=== PATIENT | male | born 1985 | race Caucasian/White ===

== ENCOUNTER 2017-01-20 08:25 | Inpatient (IN) | payer MEDICAID, MEDICARE ==
[~2017-01-20] VITALS: Ht 180.3 cm; Wt 99.2 kg
[~2017-01-20 08:25] MED LIST: ASEN10TA8 SL; QUET200T PO
[2017-01-20] MEDS ORDERED: FLUPH2.5I IM (08:37)
[2017-01-20] MEDS ORDERED: DIPH25 PO (08:37)
[2017-01-20] MEDS ORDERED: ZOLPIDEM TARTRATE 10 MG TABLET PO PRN (09:15)
[2017-01-20] MEDS ORDERED: QUEtiapine FUMARATE 100 MG TABLET PO PRN (09:15)
[2017-01-20] MEDS ORDERED: LORazepam 2 MG TABLET PO PRN (09:15)
[2017-01-20 09:42] LABS: BASOPHILS # (AUTO) 0.02 K/uL (0.00-0.20); BASOPHILS % (AUTO) 0.4 % (0.0-2.0); EOSINOPHILS % (AUTO) 1.68 % (1.0-6.0); HEMOGLOBIN 14.1 g/dL (13.5-17.5); LYMPHOCYTES % (AUTO) 17.1 % (22.0-44.0); MEAN CORPUSCULAR HGB CONC 33.5 G/dL (31.0-37.0); MEAN CORPUSCULAR VOLUME 90 fL (80-100); MONOCYTES # (AUTO) 0.3 K/uL (0.1-1.0); MONOCYTES % (AUTO) 4.6 % (2.0-9.0); NEUTROPHILS # (AUTO) 4.6 K/uL (1.8-7.7); NEUTROPHILS % (AUTO) 76.3 % (40.0-70.0); PLATELET COUNT (AUTO) 235 K/uL (150-450); RED BLOOD CELL COUNT(AUTO) 4.69 MIL/uL (4.50-5.90); RED CELL DISTRIBUTION WIDTH 12.5 % (11.5-14.5)
[2017-01-20 09:53] LABS: ANION GAP 7 mmol/L (8-16); CALCIUM, TOTAL 8.9 mg/dL (8.8-10.5); CARBON DIOXIDE 29 mmol/L (22-29); CHLORIDE 104 mmol/L (98-107); CREATININE 0.71 mg/dL (0.60-1.30); GLOMERULAR FILTR. RATE CALC > 60 mL/min (>60); POTASSIUM 4.3 mmol/L (3.5-5.1); SODIUM SERUM 140 mmol/L (136-145); UREA NITROGEN, BLOOD 10 mg/dL (7-18)
[2017-01-20 09:59] LABS: ALANINE AMINOTRANSFERASE 29 U/L (12-78); ALBUMIN 3.9 g/dL (3.4-5.0); ASPARTATE AMINOTRANSFERASE 26 U/L (15-37); BILIRUBIN,TOTAL 0.6 mg/dL (0.1-1.0); TOTAL PROTEIN, SERUM 7.6 g/dL (6.4-8.2)
[2017-01-20] MEDS ORDERED: PALIPERIDONE 3 MG ER TABLET PO PRN (10:00)
[2017-01-20] MEDS ORDERED: MAGNESIUM HYDROXIDE SUSPENSION 30 ML UDCUP PO PRN ×2 (10:00→17:30)
[2017-01-20] MEDS ORDERED: PROMETHAZINE HCL 25 MG TABLET PO PRN (10:00)
[2017-01-20] MEDS ORDERED: TUBERCULIN, PURIFIED PROTEIN DERIVATIVE 5 TU/0.1 ML SYG ID ONE (10:00)
[2017-01-20] MEDS ORDERED: LOPERAMIDE HCL 2 MG CAPSULE PO PRN ×2 (10:00→17:30)
[2017-01-20] MEDS ORDERED: MAG HYDROX/AL HYDROX/SIMETH ES 30 ML SUSPENSION UDCUP PO PRN ×2 (10:00→17:30)
[2017-01-20] MEDS ORDERED: PALIPERIDONE PALMITATE 234 MG/1.5 ML SYRINGE IM ONE (10:00)
[2017-01-20] MEDS ORDERED: ACETAMINOPHEN 325 MG TABLET PO PRN (10:00)
[2017-01-20] MEDS ORDERED: HydrOXYzine PAMOATE 50 MG CAPSULE PO PRN (10:00)
[2017-01-20] MEDS ORDERED: GuaiFENesin/D-METHORPHAN [SUGAR-FREE] 200-20MG/10 ML SYRUP UDCUP PO PRN (10:00)
[2017-01-20] MEDS ORDERED: HALOPERIDOL LACTATE 5 MG/ML VIAL IM ONE (14:00)
[2017-01-20] MEDS ORDERED: LORazepam 2 MG/ML VIAL IM ONE (14:00)
[2017-01-20] MEDS ORDERED: DiphenhydrAMINE HCL 50 MG/ML VIAL IM ONE (14:00)
[2017-01-20] MEDS: THIAMINE HCL 100 MG TABLET PO SCH (16:20)
[2017-01-20 16:36] VITALS: BP 123/73
[2017-01-20] MEDS ORDERED: ONDANSETRON HCL 4 MG TABLET PO PRN (17:30)
[2017-01-20] MEDS ORDERED: IBUPROFEN 600 MG TABLET PO PRN (17:30)
[2017-01-20] MEDS ORDERED: BACITRACIN 28.4 GM OINTMENT TP PRN (17:30)
[2017-01-20] MEDS ORDERED: CloNIDine HCL 0.1 MG TABLET PO PRN (17:30)
[2017-01-20] MEDS ORDERED: ALBUTEROL SULFATE HFA 90 MCG/PUFF 8 GM INHALER IH PRN (17:30)
[2017-01-20] MEDS ORDERED: PETROLATUM,WHITE 71 GM JELLY TP PRN (17:30)
[2017-01-20] MEDS ORDERED: BENZOCAINE/MENTHOL LOZENGE MM PRN (17:30)
[2017-01-20] MEDS ORDERED: QUEtiapine FUMARATE 100 MG TABLET PO SCH (21:00)
[2017-01-20] MEDS: PALIPERIDONE 3 MG ER TABLET PO SCH (21:04)
[2017-01-21] MEDS ORDERED: PNEUMOCOCCAL VACCINE POLYVALENT 0.5 ML VIAL [PPSV23] IM ONE (04:30)
[2017-01-21] MEDS ORDERED: INFLUENZA VIRUS VACCINE QVS 2017-18 (3YR+)/PF 60 MCG/0.5 ML SYRINGE IM ONE (04:30)
[2017-01-21 08:15] VITALS: BP 118/62
[2017-01-21] MEDS: NALTREXONE HCL 50 MG TABLET PO SCH (09:25)
[2017-01-21] MEDS: OMEPRAZOLE 20 MG CAPSULE PO SCH (09:25)
[2017-01-21] MEDS: DOCUSATE SODIUM 100 MG CAPSULE PO SCH (09:26)
[2017-01-21] MEDS: FOLIC ACID 1 MG TABLET PO SCH (09:26)
[2017-01-21] MEDS: MULTIVITAMINS WITH MINERALS, THERAPEUTIC TABLET PO SCH (09:26)
[2017-01-21] MEDS: THIAMINE HCL 100 MG TABLET PO SCH ×2 (09:26→16:18)
[2017-01-21] MEDS ORDERED: PALI234D IM (15:44)
[2017-01-21] MEDS ORDERED: NALT50TA PO (15:44)
[2017-01-21 16:00] VITALS: BP 132/84
[2017-01-21] MEDS: PALIPERIDONE 3 MG ER TABLET PO SCH (20:32)
[2017-01-22 08:13] VITALS: BP 134/77
[2017-01-22] MEDS ORDERED: PALI234D IM (09:07)
[2017-01-22] MEDS ORDERED: DSS100 PO (09:07)
[2017-01-22] MEDS ORDERED: NALT50TA6 PO (09:07)
[2017-01-22] MEDS ORDERED: OMEP20 PO (09:07)
[2017-01-22] MEDS: NALTREXONE HCL 50 MG TABLET PO SCH (09:39)
[2017-01-22] MEDS: DOCUSATE SODIUM 100 MG CAPSULE PO SCH (09:39)
[2017-01-22] MEDS: FOLIC ACID 1 MG TABLET PO SCH (09:39)
[2017-01-22] MEDS: THIAMINE HCL 100 MG TABLET PO SCH (09:39)
[2017-01-22] MEDS: MULTIVITAMINS WITH MINERALS, THERAPEUTIC TABLET PO SCH (09:39)
[2017-01-22] MEDS: OMEPRAZOLE 20 MG CAPSULE PO SCH (09:39)
[2017-01-24] MEDS ORDERED: PALIPERIDONE PALMITATE 156 MG/ML SYRINGE IM ONE (09:00)
== END 2017-01-22 11:40 | disposition home or self-care (01) | DRG 885 ==
LOC: EEVIPCON 08:28 → EMS 08:28 → B3A 13:29
PROVIDERS: ADMIT Psychiatry & Neurology Psychiatry; ATTEND Psychiatry & Neurology Psychiatry
DX: F20.0 Paranoid schizophrenia (principal); R45.851 Suicidal ideations; Z59.0 Homelessness; F32.9 Major depressive disorder, single episode, unspecified; K59.00 Constipation, unspecified; F15.10 Other stimulant abuse, uncomplicated; F12.90 Cannabis use, unspecified, uncomplicated; F17.210 Nicotine dependence, cigarettes, uncomplicated; Z91.19 Patient's noncompliance with other medical treatment and regimen; Z79.899 Other long term (current) drug therapy; Z71.6 Tobacco abuse counseling; Z87.81 Personal history of (healed) traumatic fracture
CPT/HCPCS: 96372; 99285; G0480

== ENCOUNTER 2017-11-01 22:31 | Emergency (ER) | payer MEDICARE ==
[~2017-11-01] VITALS: Ht 185.4 cm; Wt 95.5 kg
[~2017-11-01 22:31] MED LIST changes: -ASEN10TA8 SL; +DSS100 PO; +NALT50TA PO; +NALT50TA6 PO; +OMEP20 PO; +PALI234D IM; -QUET200T PO
[2017-11-01] MEDS ORDERED: QUET25TA PO (23:55)
[2017-11-01] MEDS ORDERED: BUSP5TAB20 PO (23:55)
[2017-11-01] MEDS ORDERED: RISP2 PO (23:55)
[2017-11-01] MEDS ORDERED: DIPH25 PO (23:55)
[2017-11-01] MEDS ORDERED: LORA2TAB2 PO (23:55)
[2017-11-02] LABS: AMPHET/METH SCREEN,URINE NEGATIVE (NEGATIVE); BARBITURATE SCREEN, URINE NEGATIVE (NEGATIVE); BENZODIAZEPINES SCREEN,URINE NEGATIVE (NEGATIVE); CANNABINOID SCREEN,URINE POSITIVE (NEGATIVE); COCAINE SCREEN,URINE NEGATIVE (NEGATIVE); METHADONE SCREEN, URINE NEGATIVE (NEGATIVE); OPIATE SCREEN,URINE NEGATIVE (NEGATIVE)
[2017-11-02 00:01] LABS: PHENCYCLIDINE SCREEN,URINE NEGATIVE (NEGATIVE)
[2017-11-02 00:31] LABS: BASOPHILS % (AUTO) 0.6 % (0.0-2.0); EOSINOPHILS % (AUTO) 1.7 % (1.0-6.0); HEMATOCRIT 35.7 % (41-53); LYMPHOCYTES # (AUTO) 1.7 K/uL (1.0-4.8); LYMPHOCYTES % (AUTO) 19.7 % (22.0-44.0); MEAN CORPUSCULAR HEMOGLOBIN 29.6 pg (26.0-34.0); MEAN CORPUSCULAR HGB CONC 33.6 G/dL (31.0-37.0); MEAN CORPUSCULAR VOLUME 88 fL (80-100); MONOCYTES # (AUTO) 0.4 K/uL (0.1-1.0); MONOCYTES % (AUTO) 4.5 % (2.0-9.0); NEUTROPHILS # (AUTO) 6.3 K/uL (1.8-7.7); NEUTROPHILS % (AUTO) 73.5 % (40.0-70.0); PLATELET COUNT (AUTO) 299 K/uL (150-450); RED BLOOD CELL COUNT(AUTO) 4.05 MIL/uL (4.50-5.90); RED CELL DISTRIBUTION WIDTH 13.5 % (11.5-14.5)
[2017-11-02 00:43] LABS: ANION GAP 7 mmol/L (8-16); CALCIUM, TOTAL 8.6 mg/dL (8.8-10.5); CARBON DIOXIDE 26 mmol/L (22-29); CHLORIDE 105 mmol/L (98-107); CREATININE 1.05 mg/dL (0.60-1.30); GLOMERULAR FILTR. RATE CALC > 60 mL/min (>60); GLUCOSE,RANDOM 106 mg/dL (70-110); POTASSIUM 3.5 mmol/L (3.5-5.1); SODIUM SERUM 138 mmol/L (136-145); UREA NITROGEN, BLOOD 21 mg/dL (7-18)
[2017-11-02 00:49] LABS: ALANINE AMINOTRANSFERASE 35 U/L (12-78); ALBUMIN 3.2 g/dL (3.4-5.0); ALKALINE PHOSPHATASE 65 U/L (46-116); ASPARTATE AMINOTRANSFERASE 23 U/L (15-37); BILIRUBIN,TOTAL 0.4 mg/dL (0.1-1.0); TOTAL PROTEIN, SERUM 6.6 g/dL (6.4-8.2)
[2017-11-02 01:13] VITALS: BP 136/80
== END 2017-11-02 01:36 | disposition home or self-care (01) ==
LOC: EMS 22:32
DX: F20.0 Paranoid schizophrenia (principal); F17.210 Nicotine dependence, cigarettes, uncomplicated; F12.90 Cannabis use, unspecified, uncomplicated; F19.90 Other psychoactive substance use, unspecified, uncomplicated; Z59.0 Homelessness; Z88.8 Allergy status to other drugs, medicaments and biological substances
CPT/HCPCS: 36415; 80053; 80307; 85025; 99285; G0480

== ENCOUNTER 2017-11-20 17:09 | Emergency (ER) | payer MEDICARE ==
[~2017-11-20] VITALS: Ht 180.3 cm; Wt 86.4 kg
[~2017-11-20 17:09] MED LIST changes: +BUSP5TAB20 PO; +DIPH25 PO; -DSS100 PO; +LORA2TAB2 PO; -NALT50TA PO; -NALT50TA6 PO; -OMEP20 PO; -PALI234D IM; +QUET25TA PO; +RISP2 PO
[2017-11-20 17:56] LABS: BASOPHILS % (AUTO) 0.6 % (0.0-2.0); EOSINOPHILS % (AUTO) 0.9 % (1.0-6.0); HEMATOCRIT 38.4 % (41-53); LYMPHOCYTES # (AUTO) 1.7 K/uL (1.0-4.8); MEAN CORPUSCULAR HGB CONC 33.8 G/dL (31.0-37.0); MEAN CORPUSCULAR VOLUME 89 fL (80-100); MONOCYTES # (AUTO) 0.5 K/uL (0.1-1.0); NEUTROPHILS # (AUTO) 7.1 K/uL (1.8-7.7); NEUTROPHILS % (AUTO) 75.5 % (40.0-70.0); PLATELET COUNT (AUTO) 238 K/uL (150-450); RED BLOOD CELL COUNT(AUTO) 4.33 MIL/uL (4.50-5.90)
[2017-11-20 18:07] LABS: ANION GAP 8 mmol/L (8-16); CALCIUM, TOTAL 9.6 mg/dL (8.8-10.5); CARBON DIOXIDE 29 mmol/L (22-29); CHLORIDE 102 mmol/L (98-107); GLOMERULAR FILTR. RATE CALC > 60 mL/min (>60); GLUCOSE,RANDOM 100 mg/dL (70-110); POTASSIUM 3.7 mmol/L (3.5-5.1); SODIUM SERUM 139 mmol/L (136-145); UREA NITROGEN, BLOOD 19 mg/dL (7-18)
[2017-11-20 18:12] LABS: ALANINE AMINOTRANSFERASE 58 U/L (12-78); ALKALINE PHOSPHATASE 71 U/L (46-116); ASPARTATE AMINOTRANSFERASE 37 U/L (15-37); BILIRUBIN,TOTAL 1.1 mg/dL (0.1-1.0); TOTAL PROTEIN, SERUM 7.4 g/dL (6.4-8.2)
[2017-11-20 18:29] LABS: AMPHET/METH SCREEN,URINE NEGATIVE (NEGATIVE); BARBITURATE SCREEN, URINE NEGATIVE (NEGATIVE); BENZODIAZEPINES SCREEN,URINE NEGATIVE (NEGATIVE); CANNABINOID SCREEN,URINE POSITIVE (NEGATIVE); COCAINE SCREEN,URINE NEGATIVE (NEGATIVE); METHADONE SCREEN, URINE NEGATIVE (NEGATIVE); OPIATE SCREEN,URINE NEGATIVE (NEGATIVE)
[2017-11-20 18:30] LABS: PHENCYCLIDINE SCREEN,URINE NEGATIVE (NEGATIVE)
[2017-11-20 20:12] VITALS: BP 120/71
== END 2017-11-20 20:54 | disposition home or self-care (01) ==
LOC: EMS 17:10
DX: F12.90 Cannabis use, unspecified, uncomplicated (principal); R45.851 Suicidal ideations; F20.9 Schizophrenia, unspecified; F17.210 Nicotine dependence, cigarettes, uncomplicated; Z59.0 Homelessness; Z88.8 Allergy status to other drugs, medicaments and biological substances
CPT/HCPCS: 36415; 80053; 80307; 85025; 99285; G0480

== ENCOUNTER 2017-12-08 04:02 | Inpatient (IN) | payer MEDICARE, MEDICAID ==
[~2017-12-08] VITALS: Ht 180.3 cm; Wt 89.3 kg
[2017-12-08 04:33] LABS: BASOPHILS % (AUTO) 0.9 % (0.0-2.0); EOSINOPHILS % (AUTO) 0.4 % (1.0-6.0); HEMATOCRIT 38.8 % (41-53); HEMOGLOBIN 13.1 g/dL (13.5-17.5); LYMPHOCYTES # (AUTO) 1.4 K/uL (1.0-4.8); LYMPHOCYTES % (AUTO) 12.8 % (22.0-44.0); MEAN CORPUSCULAR HEMOGLOBIN 29.8 pg (26.0-34.0); MEAN CORPUSCULAR HGB CONC 33.8 G/dL (31.0-37.0); MEAN CORPUSCULAR VOLUME 88 fL (80-100); MONOCYTES # (AUTO) 0.8 K/uL (0.1-1.0); MONOCYTES % (AUTO) 6.9 % (2.0-9.0); PLATELET COUNT (AUTO) 298 K/uL (150-450); RED BLOOD CELL COUNT(AUTO) 4.41 MIL/uL (4.50-5.90)
[2017-12-08 04:42] LABS: ANION GAP 6 mmol/L (8-16); CALCIUM, TOTAL 9.5 mg/dL (8.8-10.5); CARBON DIOXIDE 31 mmol/L (22-29); CHLORIDE 102 mmol/L (98-107); CREATININE 0.82 mg/dL (0.60-1.30); GLOMERULAR FILTR. RATE CALC > 60 mL/min (>60); GLUCOSE,RANDOM 101 mg/dL (70-110); POTASSIUM 4.1 mmol/L (3.5-5.1); SODIUM SERUM 139 mmol/L (136-145); UREA NITROGEN, BLOOD 19 mg/dL (7-18)
[2017-12-08 04:48] LABS: ALANINE AMINOTRANSFERASE 63 U/L (12-78); ALBUMIN 3.9 g/dL (3.4-5.0); ALKALINE PHOSPHATASE 61 U/L (46-116); ASPARTATE AMINOTRANSFERASE 50 U/L (15-37); BILIRUBIN,TOTAL 0.5 mg/dL (0.1-1.0); TOTAL PROTEIN, SERUM 7.5 g/dL (6.4-8.2)
[2017-12-08] MEDS ORDERED: ZOLPIDEM TARTRATE 10 MG TABLET PO PRN (06:00)
[2017-12-08 06:29] LABS: AMPHET/METH SCREEN,URINE NEGATIVE (NEGATIVE); BARBITURATE SCREEN, URINE NEGATIVE (NEGATIVE); BENZODIAZEPINES SCREEN,URINE NEGATIVE (NEGATIVE); CANNABINOID SCREEN,URINE POSITIVE (NEGATIVE); COCAINE SCREEN,URINE NEGATIVE (NEGATIVE); METHADONE SCREEN, URINE NEGATIVE (NEGATIVE); OPIATE SCREEN,URINE NEGATIVE (NEGATIVE)
[2017-12-08 06:32] LABS: PHENCYCLIDINE SCREEN,URINE NEGATIVE (NEGATIVE)
[2017-12-09 00:41] VITALS: BP 130/75
[2017-12-09] MEDS ORDERED: PNEUMOCOCCAL VACCINE POLYVALENT 0.5 ML VIAL [PPSV23] IM ONE (03:45)
[2017-12-09] MEDS ORDERED: GuaiFENesin/D-METHORPHAN [SUGAR-FREE] 200-20MG/10 ML SYRUP UDCUP PO PRN (06:45)
[2017-12-09] MEDS ORDERED: NICOTINE 14 MG/24 HOUR PATCH TD PRN (06:45)
[2017-12-09] MEDS ORDERED: CloNIDine HCL 0.1 MG TABLET PO PRN (06:45)
[2017-12-09] MEDS ORDERED: LOPERAMIDE HCL 2 MG CAPSULE PO PRN (06:45)
[2017-12-09] MEDS ORDERED: MAGNESIUM HYDROXIDE SUSPENSION 30 ML UDCUP PO PRN (06:45)
[2017-12-09] MEDS ORDERED: MAG HYDROX/AL HYDROX/SIMETH ES 30 ML SUSPENSION UDCUP PO PRN (06:45)
[2017-12-09] MEDS ORDERED: IBUPROFEN 400 MG TABLET PO PRN (06:45)
[2017-12-09] MEDS ORDERED: ACETAMINOPHEN 325 MG TABLET PO PRN (06:45)
[2017-12-09] MEDS ORDERED: PETROLATUM,WHITE 71 GM JELLY TP PRN (06:45)
[2017-12-09] MEDS ORDERED: ONDANSETRON HCL 4 MG TABLET PO PRN (06:45)
[2017-12-09] MEDS ORDERED: ALBUTEROL SULFATE HFA 90 MCG/PUFF 8 GM INHALER IH PRN (06:45)
[2017-12-09] MEDS ORDERED: DOCUSATE SODIUM 100 MG CAPSULE PO PRN (06:45)
[2017-12-09 08:01] VITALS: BP 116/60
[2017-12-09 08:52] LABS: CHOL/HDL RATIO 2.6 (4.2-7.3)
[2017-12-09] MEDS: FERROUS SULFATE 325 MG EC TABLET PO SCH ×2 (12:20→16:02)
[2017-12-09 16:01] VITALS: BP 130/81
[2017-12-09] MEDS: LORazepam 2 MG TABLET PO PRN (20:22)
[2017-12-09] MEDS: QUEtiapine FUMARATE 100 MG TABLET PO PRN (20:22)
[2017-12-10] MEDS: FERROUS SULFATE 325 MG EC TABLET PO SCH ×3 (06:59→16:39)
[2017-12-10 07:08] VITALS: BP 137/80
[2017-12-10 08:01] VITALS: BP 118/70
[2017-12-10] MEDS: LORazepam 2 MG TABLET PO PRN ×2 (12:29→16:39)
[2017-12-10] MEDS: QUEtiapine FUMARATE 100 MG TABLET PO PRN ×2 (12:29→16:39)
[2017-12-10 16:00] VITALS: BP 136/76
[2017-12-10] MEDS ORDERED: FERR-89 PO (19:21)
== END 2017-12-10 19:35 | disposition home or self-care (01) | DRG 885 ==
LOC: EMS 04:04 → B3A 21:30
PROVIDERS: ATTEND Psychiatry & Neurology Psychiatry
PROC: 3E0234Z Introduction of Serum, Toxoid and Vaccine into Muscle, Percutaneous Approach (ICD-10-PCS; principal; 2017-12-09)
DX: F25.1 Schizoaffective disorder, depressive type (principal); R45.851 Suicidal ideations; D64.9 Anemia, unspecified; D72.829 Elevated white blood cell count, unspecified; Z91.14 Patient's other noncompliance with medication regimen; F41.9 Anxiety disorder, unspecified; R74.0 Nonspecific elevation of levels of transaminase and lactic acid dehydrogenase [LDH]; F19.10 Other psychoactive substance abuse, uncomplicated; Z59.0 Homelessness; Z88.8 Allergy status to other drugs, medicaments and biological substances; Z71.51 Drug abuse counseling and surveillance of drug abuser; Z23 Encounter for immunization
CPT/HCPCS: 90471; 99285; G0480

== ENCOUNTER 2018-02-27 13:33 | Inpatient (IN) | payer MEDICARE, MEDICAID ==
[~2018-02-27] VITALS: Ht 180.3 cm; Wt 100.2 kg
[~2018-02-27 13:33] MED LIST changes: -BUSP5TAB20 PO; -DIPH25 PO; +FERR-89 PO; -LORA2TAB2 PO; -QUET25TA PO; -RISP2 PO
[2018-02-27] MEDS ORDERED: DIPH25 PO (14:45)
[2018-02-27] MEDS ORDERED: QUET25TA PO (14:45)
[2018-02-27] MEDS ORDERED: LORA0.5T2 PO (14:45)
[2018-02-27] MEDS ORDERED: ZOLP10TA7 PO (14:46)
[2018-02-27 14:52] LABS: AMPHET/METH SCREEN,URINE NEGATIVE (NEGATIVE); BARBITURATE SCREEN, URINE NEGATIVE (NEGATIVE); BENZODIAZEPINES SCREEN,URINE NEGATIVE (NEGATIVE); CANNABINOID SCREEN,URINE NEGATIVE (NEGATIVE); COCAINE SCREEN,URINE NEGATIVE (NEGATIVE); METHADONE SCREEN, URINE NEGATIVE (NEGATIVE); OPIATE SCREEN,URINE NEGATIVE (NEGATIVE)
[2018-02-27 15:02] LABS: PHENCYCLIDINE SCREEN,URINE NEGATIVE (NEGATIVE)
[2018-02-27 15:06] LABS: BASOPHILS % (AUTO) 0.5 % (0.0-2.0); EOSINOPHILS % (AUTO) 1.4 % (1.0-6.0); HEMATOCRIT 38.7 % (41-53); HEMOGLOBIN 13.1 g/dL (13.5-17.5); LYMPHOCYTES # (AUTO) 2.4 K/uL (1.0-4.8); MEAN CORPUSCULAR HEMOGLOBIN 29.7 pg (26.0-34.0); MEAN CORPUSCULAR HGB CONC 33.8 G/dL (31.0-37.0); MEAN CORPUSCULAR VOLUME 88 fL (80-100); MONOCYTES # (AUTO) 0.5 K/uL (0.1-1.0); MONOCYTES % (AUTO) 6.2 % (2.0-9.0); NEUTROPHILS % (AUTO) 61.9 % (40.0-70.0); PLATELET COUNT (AUTO) 244 K/uL (150-450); RED CELL DISTRIBUTION WIDTH 13.5 % (11.5-14.5)
[2018-02-27 15:09] LABS: ANION GAP 9 mmol/L (8-16); CALCIUM, TOTAL 8.9 mg/dL (8.8-10.5); CARBON DIOXIDE 28 mmol/L (22-29); CHLORIDE 106 mmol/L (98-107); CREATININE 0.74 mg/dL (0.60-1.30); GLOMERULAR FILTR. RATE CALC > 60 mL/min (>60); GLUCOSE,RANDOM 96 mg/dL (70-110); POTASSIUM 3.5 mmol/L (3.5-5.1); SODIUM SERUM 143 mmol/L (136-145); UREA NITROGEN, BLOOD 13 mg/dL (7-18)
[2018-02-27 15:15] LABS: ALANINE AMINOTRANSFERASE 27 U/L (12-78); ALBUMIN 3.7 g/dL (3.4-5.0); ALKALINE PHOSPHATASE 72 U/L (46-116); ASPARTATE AMINOTRANSFERASE 29 U/L (15-37); BILIRUBIN,TOTAL 0.7 mg/dL (0.1-1.0); TOTAL PROTEIN, SERUM 6.7 g/dL (6.4-8.2)
[2018-02-27] MEDS ORDERED: FluPHENAZine HCL 2.5 MG/ML INJ IM ONE (15:45)
[2018-02-27] MEDS ORDERED: LORazepam 2 MG/ML VIAL IM ONE (15:45)
[2018-02-27] MEDS ORDERED: DiphenhydrAMINE HCL 50 MG/ML VIAL IM ONE (15:45)
[2018-02-27 18:15] VITALS: BP 122/76
[2018-02-27] MEDS ORDERED: IBUPROFEN 400 MG TABLET PO PRN (18:45)
[2018-02-27] MEDS ORDERED: MAG HYDROX/AL HYDROX/SIMETH ES 30 ML SUSPENSION UDCUP PO PRN (18:45)
[2018-02-27] MEDS ORDERED: ONDANSETRON HCL 4 MG TABLET PO PRN (18:45)
[2018-02-27] MEDS ORDERED: PETROLATUM,WHITE 71 GM JELLY TP PRN (18:45)
[2018-02-27] MEDS ORDERED: CloNIDine HCL 0.1 MG TABLET PO PRN (18:45)
[2018-02-27] MEDS ORDERED: NICOTINE 14 MG/24 HOUR PATCH TD PRN (18:45)
[2018-02-27] MEDS ORDERED: DOCUSATE SODIUM 100 MG CAPSULE PO PRN (18:45)
[2018-02-27] MEDS ORDERED: ACETAMINOPHEN 325 MG TABLET PO PRN (18:45)
[2018-02-27] MEDS ORDERED: LOPERAMIDE HCL 2 MG CAPSULE PO PRN (18:45)
[2018-02-27] MEDS ORDERED: GuaiFENesin/D-METHORPHAN [SUGAR-FREE] 200-20MG/10 ML SYRUP UDCUP PO PRN (18:45)
[2018-02-27] MEDS ORDERED: ALBUTEROL SULFATE HFA 90 MCG/PUFF 8 GM INHALER IH PRN (18:45)
[2018-02-27] MEDS ORDERED: MAGNESIUM HYDROXIDE SUSPENSION 30 ML UDCUP PO PRN (18:45)
[2018-02-28 04:13] VITALS: BP 125/78
[2018-02-28 08:12] VITALS: BP 124/72
[2018-02-28] MEDS: QUEtiapine FUMARATE 100 MG TABLET PO PRN (09:30)
[2018-02-28] MEDS: LORazepam 2 MG TABLET PO PRN (09:30)
[2018-02-28] MEDS: QUEtiapine FUMARATE 25 MG TABLET PO SCH (17:01)
[2018-02-28 17:02] VITALS: BP 124/74
[2018-02-28] MEDS: QUEtiapine FUMARATE 200 MG TABLET PO SCH (20:04)
[2018-03-01 05:30] VITALS: BP 118/70
[2018-03-01 08:12] VITALS: BP 128/70
[2018-03-01] MEDS: LORazepam 2 MG TABLET PO PRN ×2 (08:51→16:21)
[2018-03-01] MEDS: QUEtiapine FUMARATE 25 MG TABLET PO SCH ×2 (08:51→16:21)
[2018-03-01 16:00] VITALS: BP 128/81
[2018-03-01] MEDS: QUEtiapine FUMARATE 200 MG TABLET PO SCH (20:21)
[2018-03-02 05:36] VITALS: BP 122/78
[2018-03-02 08:21] VITALS: BP 116/65
[2018-03-02] MEDS: QUEtiapine FUMARATE 25 MG TABLET PO SCH ×2 (08:34→16:22)
[2018-03-02] MEDS: LORazepam 2 MG TABLET PO PRN ×2 (09:50→16:22)
[2018-03-02 16:00] VITALS: BP 131/69
[2018-03-02] MEDS: QUEtiapine FUMARATE 200 MG TABLET PO SCH (20:06)
[2018-03-03 00:13] VITALS: BP 123/80
[2018-03-03] MEDS: LORazepam 2 MG TABLET PO PRN ×2 (06:03→16:24)
[2018-03-03] MEDS: QUEtiapine FUMARATE 100 MG TABLET PO PRN (06:03)
[2018-03-03 08:11] VITALS: BP 127/67
[2018-03-03] MEDS: QUEtiapine FUMARATE 25 MG TABLET PO SCH ×2 (08:36→16:24)
[2018-03-03] MEDS: QUEtiapine FUMARATE 200 MG TABLET PO SCH (20:41)
[2018-03-04] MEDS: LORazepam 2 MG TABLET PO PRN ×2 (05:04→16:50)
[2018-03-04 05:42] VITALS: BP 126/72
[2018-03-04 08:15] VITALS: BP 112/61
[2018-03-04] MEDS: QUEtiapine FUMARATE 25 MG TABLET PO SCH ×2 (08:53→16:50)
[2018-03-04 16:00] VITALS: BP 136/76
[2018-03-04] MEDS: QUEtiapine FUMARATE 200 MG TABLET PO SCH (20:36)
[2018-03-05 02:36] VITALS: BP 132/88
[2018-03-05 08:07] VITALS: BP 113/89
[2018-03-05] MEDS: QUEtiapine FUMARATE 25 MG TABLET PO SCH (08:31)
[2018-03-05] MEDS: LORazepam 2 MG TABLET PO PRN ×4 (08:31→21:29)
[2018-03-05] MEDS ORDERED: ARIPiprazole 15 MG TABLET PO SCH (09:15)
[2018-03-05] MEDS ORDERED: DIVALPROEX SODIUM 500 MG ER TABLET PO ONE (12:15)
[2018-03-05] MEDS ORDERED: DiphenhydrAMINE HCL 50 MG/ML VIAL ONE (13:44)
[2018-03-05] MEDS ORDERED: LORazepam 2 MG/ML VIAL ONE (13:44)
[2018-03-05] MEDS ORDERED: DiphenhydrAMINE HCL 50 MG/ML VIAL IM ONE (13:45)
[2018-03-05] MEDS ORDERED: LORazepam 2 MG/ML VIAL IM ONE (13:45)
[2018-03-05 14:41] VITALS: BP 120/74
[2018-03-05 16:00] VITALS: BP 118/76
[2018-03-05] MEDS: DIVALPROEX SODIUM 500 MG ER TABLET PO SCH (16:22)
[2018-03-05] MEDS: QUEtiapine FUMARATE 100 MG TABLET PO SCH (16:22)
[2018-03-05] MEDS ORDERED: ARIPiprazole LAUROXIL ER SUSPENSION 882 MG/3.2 ML SYRINGE IM ONE (17:00)
[2018-03-05] MEDS ORDERED: ARIPiprazole LAUROXIL,SUBMICR. ER SUSPENSION 675 MG/2.4 ML SYRINGE IM ONE (17:00)
[2018-03-05] MEDS: ZOLPIDEM TARTRATE 10 MG TABLET PO PRN (20:32)
[2018-03-05] MEDS: QUEtiapine FUMARATE 200 MG TABLET PO SCH (20:32)
[2018-03-06 03:33] VITALS: BP 119/72
[2018-03-06 08:10] VITALS: BP 139/78
[2018-03-06] MEDS: DIVALPROEX SODIUM 500 MG ER TABLET PO SCH ×2 (08:33→16:29)
[2018-03-06] MEDS: QUEtiapine FUMARATE 100 MG TABLET PO SCH ×2 (08:33→16:29)
[2018-03-06] MEDS: QUEtiapine FUMARATE 100 MG TABLET PO PRN (10:49)
[2018-03-06] MEDS: LORazepam 2 MG TABLET PO PRN ×2 (10:49→16:29)
[2018-03-06 16:08] VITALS: BP 118/78
[2018-03-06] MEDS: ZOLPIDEM TARTRATE 10 MG TABLET PO PRN (20:46)
[2018-03-06] MEDS: QUEtiapine FUMARATE 200 MG TABLET PO SCH (20:46)
[2018-03-07 05:25] VITALS: BP 127/75
[2018-03-07] MEDS: LORazepam 2 MG TABLET PO PRN ×2 (08:40→12:52)
[2018-03-07] MEDS: QUEtiapine FUMARATE 100 MG TABLET PO SCH ×2 (08:41→16:53)
[2018-03-07] MEDS: DIVALPROEX SODIUM 500 MG ER TABLET PO SCH ×2 (08:41→16:55)
[2018-03-07 08:52] VITALS: BP 139/83
[2018-03-07] MEDS: QUEtiapine FUMARATE 100 MG TABLET PO PRN (12:51)
[2018-03-07 16:14] VITALS: BP 117/92
[2018-03-08 04:10] VITALS: BP 135/78
[2018-03-08] MEDS: DIVALPROEX SODIUM 500 MG ER TABLET PO SCH ×2 (08:09→16:42)
[2018-03-08] MEDS: LORazepam 2 MG TABLET PO PRN ×2 (08:09→16:42)
[2018-03-08] MEDS: QUEtiapine FUMARATE 100 MG TABLET PO SCH ×2 (08:09→16:42)
[2018-03-08 09:29] VITALS: BP 133/85
[2018-03-08 17:24] VITALS: BP 139/89
[2018-03-09 08:12] VITALS: BP 139/79
[2018-03-09] MEDS: LORazepam 2 MG TABLET PO PRN ×3 (08:46→17:05)
[2018-03-09] MEDS: DIVALPROEX SODIUM 500 MG ER TABLET PO SCH ×2 (08:46→17:05)
[2018-03-09] MEDS: QUEtiapine FUMARATE 100 MG TABLET PO SCH ×2 (08:46→17:05)
[2018-03-09] MEDS: QUEtiapine FUMARATE 100 MG TABLET PO PRN (12:56)
[2018-03-09 16:00] VITALS: BP 142/88
[2018-03-10] MEDS: LORazepam 2 MG TABLET PO PRN (08:30)
[2018-03-10] MEDS: DIVALPROEX SODIUM 500 MG ER TABLET PO SCH (08:30)
[2018-03-10] MEDS: QUEtiapine FUMARATE 100 MG TABLET PO SCH (08:30)
[2018-03-10] MEDS: QUEtiapine FUMARATE 100 MG TABLET PO PRN (08:30)
[2018-03-10 08:52] VITALS: BP 139/84
[2018-03-10] MEDS ORDERED: QUET300T2 PO (10:25)
[2018-03-10] MEDS ORDERED: DIVA500T52 PO (10:25)
== END 2018-03-10 12:26 | disposition home or self-care (01) | DRG 885 ==
LOC: EMS 13:34 → B3A 17:11
PROVIDERS: ADMIT Psychiatry & Neurology Child & Adolescent Psychiatry; ATTEND Psychiatry & Neurology Child & Adolescent Psychiatry
DX: F25.0 Schizoaffective disorder, bipolar type (principal); R45.851 Suicidal ideations; F41.9 Anxiety disorder, unspecified; D64.9 Anemia, unspecified; G47.00 Insomnia, unspecified; K21.9 Gastro-esophageal reflux disease without esophagitis; R45.850 Homicidal ideations; R45.87 Impulsiveness; F12.90 Cannabis use, unspecified, uncomplicated; Z91.19 Patient's noncompliance with other medical treatment and regimen; Z59.0 Homelessness; Z23 Encounter for immunization
CPT/HCPCS: 90686; 96372; G0480; J1200; J2060; J3230; J3490

== ENCOUNTER 2018-04-02 09:35 | Inpatient (IN) | payer MEDICARE, MEDICAID ==
[~2018-04-02] VITALS: Ht 180.3 cm; Wt 93.9 kg
[~2018-04-02 09:35] MED LIST changes: +DIVA500T52 PO; -FERR-89 PO; +QUET300T2 PO
[2018-04-02 10:51] LABS: BASOPHILS % (AUTO) 0.3 % (0.0-2.0); EOSINOPHILS % (AUTO) 1.6 % (1.0-6.0); HEMATOCRIT 41.8 % (41-53); LYMPHOCYTES # (AUTO) 1.6 K/uL (1.0-4.8); LYMPHOCYTES % (AUTO) 32.6 % (22.0-44.0); MEAN CORPUSCULAR HEMOGLOBIN 29.6 pg (26.0-34.0); MEAN CORPUSCULAR HGB CONC 33.6 G/dL (31.0-37.0); MEAN CORPUSCULAR VOLUME 88 fL (80-100); MONOCYTES # (AUTO) 0.4 K/uL (0.1-1.0); MONOCYTES % (AUTO) 8.1 % (2.0-9.0); NEUTROPHILS # (AUTO) 2.8 K/uL (1.8-7.7); NEUTROPHILS % (AUTO) 57.4 % (40.0-70.0); PLATELET COUNT (AUTO) 254 K/uL (150-450); RED BLOOD CELL COUNT(AUTO) 4.74 MIL/uL (4.50-5.90); RED CELL DISTRIBUTION WIDTH 13.8 % (11.5-14.5)
[2018-04-02 10:59] LABS: ANION GAP 7 mmol/L (8-16); CALCIUM, TOTAL 8.7 mg/dL (8.8-10.5); CARBON DIOXIDE 28 mmol/L (22-29); CHLORIDE 105 mmol/L (98-107); CREATININE 0.77 mg/dL (0.60-1.30); GLOMERULAR FILTR. RATE CALC > 60 mL/min (>60); GLUCOSE,RANDOM 96 mg/dL (70-110); POTASSIUM 3.9 mmol/L (3.5-5.1); SODIUM SERUM 140 mmol/L (136-145); UREA NITROGEN, BLOOD 16 mg/dL (7-18)
[2018-04-02] MEDS ORDERED: IBUPROFEN 400 MG TABLET PO PRN (11:00)
[2018-04-02] MEDS ORDERED: ACETAMINOPHEN 325 MG TABLET PO PRN (11:00)
[2018-04-02 11:06] LABS: ALANINE AMINOTRANSFERASE 22 U/L (12-78); ALBUMIN 3.6 g/dL (3.4-5.0); ALKALINE PHOSPHATASE 61 U/L (46-116); ASPARTATE AMINOTRANSFERASE 24 U/L (15-37); BILIRUBIN,TOTAL 0.9 mg/dL (0.1-1.0); TOTAL PROTEIN, SERUM 7.1 g/dL (6.4-8.2); VALPROIC ACID < 3 mcg/mL (50-100)
[2018-04-02] MEDS ORDERED: LORazepam 2 MG TABLET PO ONE (11:30)
[2018-04-02] MEDS ORDERED: QUEtiapine FUMARATE 100 MG TABLET PO ONE (11:30)
[2018-04-02 14:17] VITALS: BP 117/75
[2018-04-02 18:58] VITALS: BP 105/53
[2018-04-02] MEDS: NYSTATIN 30 GM CREAM TP SCH (20:45)
[2018-04-02] MEDS: NEOMYCIN/BACITRACIN/POLYMYXIN B 30 GM OINTMENT TP SCH (20:46)
[2018-04-03 00:36] VITALS: BP 112/62
[2018-04-03 08:11] VITALS: BP 115/60
[2018-04-03] MEDS: NEOMYCIN/BACITRACIN/POLYMYXIN B 30 GM OINTMENT TP SCH ×2 (09:00→16:36)
[2018-04-03] MEDS: NYSTATIN 30 GM CREAM TP SCH ×2 (09:00→16:36)
[2018-04-03] MEDS: QUEtiapine FUMARATE 300 MG TABLET PO SCH ×2 (10:35→16:37)
[2018-04-03] MEDS: DIVALPROEX SODIUM 500 MG ER TABLET PO SCH ×2 (10:35→16:37)
[2018-04-03 16:00] VITALS: BP 118/65
[2018-04-03] MEDS: LORazepam 2 MG TABLET PO PRN (16:37)
[2018-04-04 01:33] VITALS: BP 117/75
[2018-04-04 08:07] VITALS: BP 131/74
[2018-04-04] MEDS: LORazepam 2 MG TABLET PO PRN ×3 (08:45→17:09)
[2018-04-04] MEDS: DIVALPROEX SODIUM 500 MG ER TABLET PO SCH ×2 (08:45→17:09)
[2018-04-04] MEDS: QUEtiapine FUMARATE 300 MG TABLET PO SCH ×2 (08:45→17:09)
[2018-04-04] MEDS: NEOMYCIN/BACITRACIN/POLYMYXIN B 30 GM OINTMENT TP SCH ×2 (08:46→17:09)
[2018-04-04] MEDS: NYSTATIN 30 GM CREAM TP SCH ×2 (08:46→17:09)
[2018-04-04] MEDS: QUEtiapine FUMARATE 100 MG TABLET PO PRN (12:51)
[2018-04-05 06:27] VITALS: BP 122/78
[2018-04-05 08:00] VITALS: BP 125/67
[2018-04-05] MEDS: LORazepam 2 MG TABLET PO PRN ×3 (08:56→16:59)
[2018-04-05] MEDS: DIVALPROEX SODIUM 500 MG ER TABLET PO SCH ×2 (08:56→16:59)
[2018-04-05] MEDS: QUEtiapine FUMARATE 300 MG TABLET PO SCH ×2 (08:56→16:59)
[2018-04-05] MEDS: NEOMYCIN/BACITRACIN/POLYMYXIN B 30 GM OINTMENT TP SCH ×2 (08:56→17:02)
[2018-04-05] MEDS: NYSTATIN 30 GM CREAM TP SCH ×2 (08:56→17:02)
[2018-04-05] MEDS: QUEtiapine FUMARATE 100 MG TABLET PO PRN (11:40)
[2018-04-05 16:00] VITALS: BP 132/76
[2018-04-06 03:15] VITALS: BP 136/77
[2018-04-06 08:07] VITALS: BP 138/84
[2018-04-06] MEDS: DIVALPROEX SODIUM 500 MG ER TABLET PO SCH ×2 (08:51→16:19)
[2018-04-06] MEDS: QUEtiapine FUMARATE 300 MG TABLET PO SCH ×2 (08:51→16:19)
[2018-04-06] MEDS: NEOMYCIN/BACITRACIN/POLYMYXIN B 30 GM OINTMENT TP SCH ×2 (08:52→16:19)
[2018-04-06] MEDS: NYSTATIN 30 GM CREAM TP SCH ×2 (08:52→16:19)
[2018-04-06 16:00] VITALS: BP 134/69
[2018-04-06] MEDS: QUEtiapine FUMARATE 100 MG TABLET PO PRN ×2 (16:19→20:20)
[2018-04-06] MEDS: LORazepam 2 MG TABLET PO PRN ×2 (16:20→20:20)
[2018-04-07 03:20] VITALS: BP 126/82
[2018-04-07] MEDS: LORazepam 2 MG TABLET PO PRN ×3 (08:30→16:51)
[2018-04-07] MEDS: DIVALPROEX SODIUM 500 MG ER TABLET PO SCH ×2 (08:30→16:51)
[2018-04-07] MEDS: QUEtiapine FUMARATE 100 MG TABLET PO PRN ×2 (08:30→12:35)
[2018-04-07] MEDS: QUEtiapine FUMARATE 300 MG TABLET PO SCH ×2 (08:30→16:51)
[2018-04-07] MEDS: NYSTATIN 30 GM CREAM TP SCH ×2 (08:31→16:51)
[2018-04-07] MEDS: NEOMYCIN/BACITRACIN/POLYMYXIN B 30 GM OINTMENT TP SCH ×2 (08:31→16:51)
[2018-04-07 08:37] VITALS: BP 129/66
[2018-04-07 16:36] VITALS: BP 112/60
[2018-04-08] MEDS: LORazepam 2 MG TABLET PO PRN ×4 (04:21→21:01)
[2018-04-08] MEDS: QUEtiapine FUMARATE 100 MG TABLET PO PRN ×2 (04:21→08:40)
[2018-04-08 06:32] VITALS: BP 125/72
[2018-04-08 08:06] VITALS: BP 120/67
[2018-04-08] MEDS: DIVALPROEX SODIUM 500 MG ER TABLET PO SCH ×2 (08:40→16:57)
[2018-04-08] MEDS: QUEtiapine FUMARATE 300 MG TABLET PO SCH ×2 (08:40→16:57)
[2018-04-08] MEDS: NEOMYCIN/BACITRACIN/POLYMYXIN B 30 GM OINTMENT TP SCH ×2 (08:41→16:58)
[2018-04-08] MEDS: NYSTATIN 30 GM CREAM TP SCH ×2 (08:41→16:58)
[2018-04-08 16:00] VITALS: BP 124/65
[2018-04-08] MEDS: ZOLPIDEM TARTRATE 10 MG TABLET PO PRN (21:01)
[2018-04-09 01:44] VITALS: BP 118/78
[2018-04-09 08:05] VITALS: BP 132/80
[2018-04-09] MEDS: DIVALPROEX SODIUM 500 MG ER TABLET PO SCH ×2 (08:43→16:48)
[2018-04-09] MEDS: LORazepam 2 MG TABLET PO PRN ×2 (08:43→16:48)
[2018-04-09] MEDS: QUEtiapine FUMARATE 300 MG TABLET PO SCH ×2 (08:43→16:48)
[2018-04-09] MEDS: QUEtiapine FUMARATE 100 MG TABLET PO PRN (08:44)
[2018-04-09] MEDS: NYSTATIN 30 GM CREAM TP SCH ×2 (08:46→16:48)
[2018-04-09] MEDS: NEOMYCIN/BACITRACIN/POLYMYXIN B 30 GM OINTMENT TP SCH ×2 (08:46→16:49)
[2018-04-09 16:00] VITALS: BP 138/69
[2018-04-10 06:28] VITALS: BP 125/75
[2018-04-10 08:06] VITALS: BP 130/82
[2018-04-10] MEDS: DIVALPROEX SODIUM 500 MG ER TABLET PO SCH ×2 (08:33→16:50)
[2018-04-10] MEDS: QUEtiapine FUMARATE 300 MG TABLET PO SCH ×2 (08:33→16:50)
[2018-04-10] MEDS: NEOMYCIN/BACITRACIN/POLYMYXIN B 30 GM OINTMENT TP SCH ×2 (08:34→16:50)
[2018-04-10] MEDS: NYSTATIN 30 GM CREAM TP SCH ×2 (08:34→16:50)
[2018-04-10] MEDS: LORazepam 2 MG TABLET PO PRN ×3 (09:56→20:50)
[2018-04-10 16:05] VITALS: BP 125/77
[2018-04-10] MEDS: ZOLPIDEM TARTRATE 10 MG TABLET PO PRN (20:50)
[2018-04-11 05:23] VITALS: BP 126/75
[2018-04-11] MEDS: NYSTATIN 30 GM CREAM TP SCH ×2 (08:30→16:31)
[2018-04-11] MEDS: NEOMYCIN/BACITRACIN/POLYMYXIN B 30 GM OINTMENT TP SCH ×2 (08:30→16:31)
[2018-04-11] MEDS: QUEtiapine FUMARATE 300 MG TABLET PO SCH ×2 (08:30→16:31)
[2018-04-11] MEDS: DIVALPROEX SODIUM 500 MG ER TABLET PO SCH ×2 (08:30→16:31)
[2018-04-11] MEDS: QUEtiapine FUMARATE 100 MG TABLET PO PRN ×2 (08:30→18:25)
[2018-04-11] MEDS: LORazepam 2 MG TABLET PO PRN ×2 (08:30→18:25)
[2018-04-11 08:53] VITALS: BP 113/76
[2018-04-11 17:31] VITALS: BP 105/72
[2018-04-12 08:12] VITALS: BP 117/73
[2018-04-12] MEDS: QUEtiapine FUMARATE 100 MG TABLET PO PRN ×2 (08:30→12:31)
[2018-04-12] MEDS: NYSTATIN 30 GM CREAM TP SCH ×2 (08:31→16:15)
[2018-04-12] MEDS: LORazepam 2 MG TABLET PO PRN ×2 (08:31→12:30)
[2018-04-12] MEDS: NEOMYCIN/BACITRACIN/POLYMYXIN B 30 GM OINTMENT TP SCH ×2 (08:31→16:16)
[2018-04-12] MEDS: DIVALPROEX SODIUM 500 MG ER TABLET PO SCH ×2 (08:31→16:15)
[2018-04-12] MEDS: QUEtiapine FUMARATE 300 MG TABLET PO SCH ×2 (08:31→16:15)
[2018-04-12 16:15] VITALS: BP 126/66
[2018-04-13 08:05] VITALS: BP 138/86
[2018-04-13] MEDS: LORazepam 2 MG TABLET PO PRN ×3 (08:50→21:07)
[2018-04-13] MEDS: QUEtiapine FUMARATE 300 MG TABLET PO SCH ×2 (08:50→17:07)
[2018-04-13] MEDS: DIVALPROEX SODIUM 500 MG ER TABLET PO SCH ×2 (08:51→17:07)
[2018-04-13] MEDS: QUEtiapine FUMARATE 100 MG TABLET PO PRN (08:51)
[2018-04-13] MEDS: NYSTATIN 30 GM CREAM TP SCH ×2 (08:52→17:07)
[2018-04-13] MEDS: NEOMYCIN/BACITRACIN/POLYMYXIN B 30 GM OINTMENT TP SCH ×2 (08:52→17:06)
[2018-04-13 16:14] VITALS: BP 128/76
[2018-04-13] MEDS: ZOLPIDEM TARTRATE 10 MG TABLET PO PRN (21:08)
[2018-04-14 08:06] VITALS: BP 123/74
[2018-04-14] MEDS: NEOMYCIN/BACITRACIN/POLYMYXIN B 30 GM OINTMENT TP SCH (08:06)
[2018-04-14] MEDS: NYSTATIN 30 GM CREAM TP SCH (08:06)
[2018-04-14] MEDS: DIVALPROEX SODIUM 500 MG ER TABLET PO SCH (08:06)
[2018-04-14] MEDS: QUEtiapine FUMARATE 300 MG TABLET PO SCH (08:06)
[2018-04-14] MEDS: QUEtiapine FUMARATE 100 MG TABLET PO PRN (10:46)
[2018-04-14] MEDS: LORazepam 2 MG TABLET PO PRN (10:46)
== END 2018-04-14 17:34 | disposition home or self-care (01) | DRG 885 ==
LOC: EMS 09:37 → B2X 12:26 → B3A 23:48
PROVIDERS: ADMIT Psychiatry & Neurology Child & Adolescent Psychiatry; ATTEND Psychiatry & Neurology Child & Adolescent Psychiatry
DX: F25.0 Schizoaffective disorder, bipolar type (principal); E83.51 Hypocalcemia; F41.9 Anxiety disorder, unspecified; D64.9 Anemia, unspecified; S30.810A Abrasion of lower back and pelvis, initial encounter; X58.XXXA Exposure to other specified factors, initial encounter; Y93.89 Activity, other specified; Y92.89 Other specified places as the place of occurrence of the external cause; Y99.8 Other external cause status; Z59.0 Homelessness; Z91.19 Patient's noncompliance with other medical treatment and regimen
CPT/HCPCS: G0480

== ENCOUNTER 2018-05-22 10:05 | Inpatient (IN) | payer MEDICARE, MEDICAID ==
[~2018-05-22] VITALS: Ht 182.9 cm; Wt 101.6 kg
[2018-05-22 10:30] VITALS: BP 140/85
[2018-05-22] MEDS ORDERED: ZOLPIDEM TARTRATE 10 MG TABLET PO PRN (10:30)
[2018-05-22 11:00] VITALS: BP 131/70
[2018-05-22] MEDS ORDERED: DIVALPROEX SODIUM 500 MG DR TABLET PO SCH (11:15)
[2018-05-22] MEDS: QUEtiapine FUMARATE 300 MG TABLET PO SCH ×2 (11:15→17:00)
[2018-05-22] MEDS ORDERED: -PHARMACY VACCINE NOTE- MISC ONE (14:15)
[2018-05-22] MEDS ORDERED: DiphenhydrAMINE HCL 50 MG/ML VIAL ONE (15:25)
[2018-05-22] MEDS ORDERED: LORazepam 2 MG/ML VIAL ONE (15:25)
[2018-05-22] MEDS ORDERED: QUEtiapine FUMARATE 300 MG TABLET PO SCH (17:00)
[2018-05-22] MEDS: DIVALPROEX SODIUM 500 MG ER TABLET PO SCH (17:00)
[2018-05-23 06:36] VITALS: BP 141/97
[2018-05-23 08:10] VITALS: BP 121/78
[2018-05-23] MEDS: QUEtiapine FUMARATE 300 MG TABLET PO SCH ×2 (08:55→16:48)
[2018-05-23] MEDS: DIVALPROEX SODIUM 500 MG ER TABLET PO SCH ×2 (08:55→16:48)
[2018-05-23] MEDS: LORazepam 2 MG TABLET PO PRN ×2 (08:56→18:37)
[2018-05-23] MEDS ORDERED: LORazepam 2 MG/ML VIAL ONE (09:23)
[2018-05-23] MEDS ORDERED: LORazepam 2 MG/ML VIAL IM ONE (09:30)
[2018-05-23] MEDS: ChlorproMAZINE HCL 50 MG TABLET PO SCH ×2 (13:36→16:48)
[2018-05-23] MEDS ORDERED: ALBUTEROL SULFATE HFA 90 MCG/PUFF 8 GM INHALER IH PRN (14:45)
[2018-05-23] MEDS ORDERED: ACETAMINOPHEN 325 MG TABLET PO PRN (14:45)
[2018-05-23] MEDS ORDERED: NICOTINE 14 MG/24 HOUR PATCH TD PRN (14:45)
[2018-05-23] MEDS ORDERED: ONDANSETRON HCL 4 MG TABLET PO PRN (14:45)
[2018-05-23] MEDS ORDERED: IBUPROFEN 400 MG TABLET PO PRN (14:45)
[2018-05-23] MEDS ORDERED: MAG HYDROX/AL HYDROX/SIMETH ES 30 ML SUSPENSION UDCUP PO PRN (14:45)
[2018-05-23] MEDS ORDERED: MAGNESIUM HYDROXIDE SUSPENSION 30 ML UDCUP PO PRN (14:45)
[2018-05-23] MEDS ORDERED: DOCUSATE SODIUM 100 MG CAPSULE PO PRN (14:45)
[2018-05-23] MEDS ORDERED: CloNIDine HCL 0.1 MG TABLET PO PRN (14:45)
[2018-05-23] MEDS ORDERED: PETROLATUM,WHITE 71 GM JELLY TP PRN (14:45)
[2018-05-23] MEDS ORDERED: GuaiFENesin/D-METHORPHAN [SUGAR-FREE] 200-20MG/10 ML SYRUP UDCUP PO PRN (14:45)
[2018-05-23] MEDS ORDERED: LOPERAMIDE HCL 2 MG CAPSULE PO PRN (14:45)
[2018-05-24] MEDS: LORazepam 2 MG TABLET PO PRN ×2 (08:02→17:02)
[2018-05-24] MEDS: QUEtiapine FUMARATE 300 MG TABLET PO SCH ×2 (08:02→17:01)
[2018-05-24] MEDS: ChlorproMAZINE HCL 50 MG TABLET PO SCH ×3 (08:02→17:01)
[2018-05-24] MEDS: DIVALPROEX SODIUM 500 MG ER TABLET PO SCH ×2 (08:02→17:01)
[2018-05-24 08:47] VITALS: BP 107/69
[2018-05-24 16:00] VITALS: BP 116/70
[2018-05-25 04:20] VITALS: BP 112/78
[2018-05-25] MEDS: QUEtiapine FUMARATE 300 MG TABLET PO SCH ×2 (08:31→16:27)
[2018-05-25] MEDS: DIVALPROEX SODIUM 500 MG ER TABLET PO SCH ×2 (08:31→16:27)
[2018-05-25] MEDS: ChlorproMAZINE HCL 50 MG TABLET PO SCH ×3 (08:31→16:27)
[2018-05-25] MEDS: LORazepam 2 MG TABLET PO PRN ×4 (08:31→20:53)
[2018-05-25 16:08] VITALS: BP 120/88
[2018-05-25] MEDS: QUEtiapine FUMARATE 100 MG TABLET PO PRN (20:53)
[2018-05-26] MEDS: DIVALPROEX SODIUM 500 MG ER TABLET PO SCH ×2 (08:24→16:07)
[2018-05-26] MEDS: LORazepam 2 MG TABLET PO PRN ×3 (08:24→18:16)
[2018-05-26] MEDS: ChlorproMAZINE HCL 50 MG TABLET PO SCH ×3 (08:24→16:07)
[2018-05-26] MEDS: QUEtiapine FUMARATE 300 MG TABLET PO SCH ×2 (08:24→16:07)
[2018-05-26 08:36] VITALS: BP 118/75
[2018-05-26] MEDS ORDERED: LORazepam 2 MG/ML VIAL IM ONE (13:15)
[2018-05-26] MEDS ORDERED: DiphenhydrAMINE HCL 50 MG/ML VIAL IM ONE (13:15)
[2018-05-26 16:00] VITALS: BP 118/69
[2018-05-27] MEDS ORDERED: LORazepam 2 MG/ML VIAL IM ONE (01:00)
[2018-05-27] MEDS ORDERED: DiphenhydrAMINE HCL 50 MG/ML VIAL IM ONE (01:00)
[2018-05-27 06:06] VITALS: BP 116/74
[2018-05-27] MEDS: LORazepam 2 MG TABLET PO PRN ×3 (09:45→18:06)
[2018-05-27] MEDS: DIVALPROEX SODIUM 500 MG ER TABLET PO SCH ×2 (09:45→16:11)
[2018-05-27] MEDS: QUEtiapine FUMARATE 300 MG TABLET PO SCH ×2 (09:45→16:11)
[2018-05-27] MEDS: ChlorproMAZINE HCL 50 MG TABLET PO SCH ×3 (09:45→16:11)
[2018-05-27 17:34] VITALS: BP 123/80
[2018-05-28 05:29] VITALS: BP 110/77
[2018-05-28] MEDS: QUEtiapine FUMARATE 100 MG TABLET PO PRN (07:29)
[2018-05-28 08:29] VITALS: BP 146/87
[2018-05-28] MEDS: DIVALPROEX SODIUM 500 MG ER TABLET PO SCH (08:57)
[2018-05-28] MEDS: QUEtiapine FUMARATE 300 MG TABLET PO SCH (08:57)
[2018-05-28] MEDS: ChlorproMAZINE HCL 50 MG TABLET PO SCH (08:57)
[2018-05-28] MEDS: LORazepam 2 MG TABLET PO PRN (09:56)
[2018-05-28] MEDS ORDERED: CHLO25 PO (11:29)
== END 2018-05-28 14:00 | disposition home or self-care (01) | DRG 885 ==
LOC: B3A 10:29
PROVIDERS: ADMIT Psychiatry & Neurology Child & Adolescent Psychiatry; ATTEND Psychiatry & Neurology Child & Adolescent Psychiatry
DX: F25.0 Schizoaffective disorder, bipolar type (principal); E83.51 Hypocalcemia; F41.9 Anxiety disorder, unspecified; E11.9 Type 2 diabetes mellitus without complications; F32.9 Major depressive disorder, single episode, unspecified; R10.13 Epigastric pain
CPT/HCPCS: J1200; J2060; J3230

== ENCOUNTER 2021-01-24 10:12 | Inpatient (IN) | payer MEDICARE, MEDICAID ==
[~2021-01-24] VITALS: Ht 180.3 cm; Wt 90.6 kg
[~2021-01-24 10:12] MED LIST changes: -DIVA500T52 PO; -QUET300T2 PO; +RISP4TAB73 PO
[2021-01-24] MEDS ORDERED: QUEtiapine FUMARATE 100 MG TABLET PO ONE (10:45)
[2021-01-24] MEDS ORDERED: DiphenhydrAMINE HCL 50 MG/ML VIAL IM ONE (10:45)
[2021-01-24] MEDS ORDERED: LORazepam 2 MG/ML VIAL IM ONE (10:45)
[2021-01-24 12:15] LABS: BASOPHILS % (AUTO) 0.5 % (0.0-2.0); EOSINOPHILS % (AUTO) 3.2 % (1.0-6.0); HEMATOCRIT 37.9 % (41-53); HEMOGLOBIN 12.5 g/dL (13.5-17.5); LYMPHOCYTES # (AUTO) 1.5 K/uL (1.0-4.8); LYMPHOCYTES % (AUTO) 29.4 % (22.0-44.0); MEAN CORPUSCULAR HEMOGLOBIN 29.2 pg (26.0-34.0); MEAN CORPUSCULAR VOLUME 89 fL (80-100); MONOCYTES # (AUTO) 0.6 K/uL (0.1-1.0); MONOCYTES % (AUTO) 11.8 % (2.0-9.0); NEUTROPHILS # (AUTO) 2.9 K/uL (1.8-7.7); NEUTROPHILS % (AUTO) 55.1 % (40.0-70.0); PLATELET COUNT (AUTO) 248 K/uL (150-450); RED BLOOD CELL COUNT(AUTO) 4.29 MIL/uL (4.50-5.90); RED CELL DISTRIBUTION WIDTH 13.7 % (11.5-14.5)
[2021-01-24 12:23] LABS: ANION GAP 8 mmol/L (8-16); CALCIUM, TOTAL 8.6 mg/dL (8.8-10.5); CARBON DIOXIDE 29 mmol/L (22-29); CHLORIDE 106 mmol/L (98-107); CREATININE 0.79 mg/dL (0.60-1.30); GLOMERULAR FILTR. RATE CALC > 60 mL/min (>60); GLUCOSE,RANDOM 102 mg/dL (70-110); POTASSIUM 3.5 mmol/L (3.5-5.1); SODIUM SERUM 143 mmol/L (136-145); UREA NITROGEN, BLOOD 18 mg/dL (7-18)
[2021-01-24 12:29] LABS: ALANINE AMINOTRANSFERASE 42 U/L (12-78); ALBUMIN 3.2 g/dL (3.4-5.0); ALKALINE PHOSPHATASE 63 U/L (46-116); ASPARTATE AMINOTRANSFERASE 46 U/L (15-37); BILIRUBIN,TOTAL 0.6 mg/dL (0.1-1.0); TOTAL PROTEIN, SERUM 6.3 g/dL (6.4-8.2)
[2021-01-24] MEDS ORDERED: ZOLPIDEM TARTRATE 10 MG TABLET PO PRN (13:00)
[2021-01-24 15:36] LABS: COVID AG,FIA SOURCE NASOPHARYNGEAL
[2021-01-24] MEDS: HALOPERIDOL 5 MG TABLET PO PRN (18:19)
[2021-01-24] MEDS: LORazepam 2 MG TABLET PO PRN (18:19)
[2021-01-24 20:11] VITALS: BP 114/80
[2021-01-24 22:27] VITALS: BP 114/80
[2021-01-25] MEDS: LORazepam 2 MG TABLET PO PRN ×3 (09:51→19:24)
[2021-01-25] MEDS: HALOPERIDOL 5 MG TABLET PO PRN ×2 (09:51→17:10)
[2021-01-25] MEDS ORDERED: CloNIDine HCL 0.1 MG TABLET PO PRN (11:15)
[2021-01-25] MEDS ORDERED: ALBUTEROL SULFATE HFA 90 MCG/PUFF 8 GM INHALER IH PRN (11:15)
[2021-01-25] MEDS ORDERED: IBUPROFEN 600 MG TABLET PO PRN (11:15)
[2021-01-25] MEDS ORDERED: LOPERAMIDE HCL 2 MG CAPSULE PO PRN (11:15)
[2021-01-25] MEDS ORDERED: ACETAMINOPHEN 325 MG TABLET PO PRN (11:15)
[2021-01-25] MEDS ORDERED: BACITRACIN 28 GM OINTMENT TP PRN (11:15)
[2021-01-25] MEDS ORDERED: DOCUSATE SODIUM 100 MG CAPSULE PO PRN (11:15)
[2021-01-25] MEDS ORDERED: OMEPRAZOLE 20 MG CAPSULE PO PRN (11:15)
[2021-01-25] MEDS ORDERED: ONDANSETRON HCL 4 MG TABLET PO PRN (11:15)
[2021-01-25] MEDS ORDERED: MAGNESIUM HYDROXIDE SUSPENSION 30 ML UDCUP PO PRN (11:15)
[2021-01-25] MEDS ORDERED: BENZOCAINE/MENTHOL LOZENGE PO PRN (11:15)
[2021-01-25] MEDS ORDERED: PETROLATUM,WHITE 28 GM JELLY TP PRN (11:15)
[2021-01-25] MEDS ORDERED: MAG HYDROX/AL HYDROX/SIMETH ES 30 ML SUSPENSION UDCUP PO PRN (11:15)
[2021-01-25 12:38] VITALS: BP 135/67
[2021-01-25] MEDS ORDERED: INFLUENZA VIRUS VACCINE QVS 2021-22 (6MO+)/PF 60 MCG/0.5 ML SYRINGE IM. ONE (15:00)
[2021-01-25] MEDS: RisperiDONE 4 MG TABLET PO SCH (17:10)
[2021-01-25 17:25] VITALS: BP 119/81
[2021-01-26 01:04] VITALS: BP 101/62
[2021-01-26 08:30] VITALS: BP 128/90
[2021-01-26] MEDS: RisperiDONE 4 MG TABLET PO SCH ×3 (08:45→16:58)
[2021-01-26 09:01] VITALS: BP 128/90
[2021-01-26 16:12] VITALS: BP 139/80
[2021-01-26] MEDS: HALOPERIDOL 5 MG TABLET PO PRN (16:58)
[2021-01-26] MEDS: LORazepam 2 MG TABLET PO PRN (16:58)
[2021-01-27 01:26] VITALS: BP 104/65
[2021-01-27 08:38] VITALS: BP 146/87
[2021-01-27] MEDS: LORazepam 2 MG TABLET PO PRN ×2 (08:49→17:03)
[2021-01-27] MEDS: HALOPERIDOL 5 MG TABLET PO PRN (08:49)
[2021-01-27] MEDS: RisperiDONE 4 MG TABLET PO SCH ×2 (08:50→17:03)
[2021-01-28 05:23] VITALS: BP 120/82
[2021-01-28] MEDS: RisperiDONE 4 MG TABLET PO SCH (08:49)
[2021-01-28] MEDS: HALOPERIDOL 5 MG TABLET PO PRN (08:49)
[2021-01-28] MEDS: LORazepam 2 MG TABLET PO PRN (08:49)
[2021-01-28 08:58] VITALS: BP 143/92
== END 2021-01-28 15:20 | disposition home or self-care (01) | DRG 885 ==
LOC: EMS 10:17 → B3A 15:32
PROVIDERS: ADMIT Psychiatry & Neurology Psychiatry; ATTEND Psychiatry & Neurology Psychiatry
DX: F20.0 Paranoid schizophrenia (principal); G47.00 Insomnia, unspecified; K59.00 Constipation, unspecified; F19.10 Other psychoactive substance abuse, uncomplicated; Z20.822 Contact with and (suspected) exposure to COVID-19; Z59.00 Homelessness unspecified; Z91.19 Patient's noncompliance with other medical treatment and regimen; Z88.8 Allergy status to other drugs, medicaments and biological substances; Z72.0 Tobacco use; Z71.6 Tobacco abuse counseling
CPT/HCPCS: 80053; 85025; 90686; 99285; G0480; J1200; J2060